=== PATIENT | female | born 1950 | race Caucasian/White ===

== ENCOUNTER 2021-10-04 09:22 | Emergency (ER) | payer MEDICARE ==
[~2021-10-04] VITALS: Ht 154.9 cm; Wt 99.5 kg
[2021-10-04 09:33] VITALS: BP 126/78
[2021-10-04] MEDS ORDERED: TRIAMCINOLON0.11 EX (09:58)
[2021-10-04 10:01] VITALS: BP 122/81
[2021-10-04 10:21] VITALS: BP 126/78
== END 2021-10-04 10:24 | disposition home or self-care (01) ==
LOC: ED 09:22
DX: R21 Rash and other nonspecific skin eruption (principal); I10 Essential (primary) hypertension; E78.5 Hyperlipidemia, unspecified; L30.9 Dermatitis, unspecified